=== PATIENT | female | born 1990 | race Caucasian/White ===

== ENCOUNTER 2018-09-22 18:05 | Emergency (ER) | payer OTHER, MEDICAID ==
[~2018-09-22] VITALS: Ht 167.6 cm; Wt 99.8 kg
[~2018-09-22 18:05] MED LIST: ALBUTEROL0.09 MG/A2 INH; AMOXICILLIN500 MG PO; FLEXERIL10 MG PO; HYDROCODONE BIT1 T11 PO; MIRALAX POWDER17 G1 PO; MOTRIN800 MG PO; MULTI-DAY1 TAB PO; PROAIR
== END 2018-09-22 20:26 | disposition home or self-care (01) ==
LOC: ED 18:05
DX: S29.012A Strain of muscle and tendon of back wall of thorax, initial encounter (principal); S09.90XA Unspecified injury of head, initial encounter; Z79.899 Other long term (current) drug therapy; V49.88XA Car occupant (driver) (passenger) injured in other specified transport accidents, initial encounter; Y93.89 Activity, other specified; Y92.413 State road as the place of occurrence of the external cause; Y99.9 Unspecified external cause status

== ENCOUNTER 2019-01-20 01:30 | Emergency (ER) | payer SELFPAY ==
[~2019-01-20] VITALS: Ht 167.6 cm; Wt 93.0 kg
[2019-01-20] MEDS ORDERED: Motrin,Rufen800 MG PO (02:31)
== END 2019-01-20 03:00 | disposition home or self-care (01) ==
LOC: ED 01:30
DX: S82.55XA Nondisplaced fracture of medial malleolus of left tibia, initial encounter for closed fracture (principal); M79.671 Pain in right foot; Z79.899 Other long term (current) drug therapy; Z88.7 Allergy status to serum and vaccine; W10.8XXA Fall (on) (from) other stairs and steps, initial encounter; Y93.89 Activity, other specified; Y92.89 Other specified places as the place of occurrence of the external cause; Y99.8 Other external cause status

== ENCOUNTER 2019-06-23 14:48 | Emergency (ER) | payer OTHER ==
[~2019-06-23] VITALS: Ht 167.6 cm; Wt 95.3 kg
[~2019-06-23 14:48] MED LIST changes: +Motrin,Rufen800 MG PO
[2019-06-23] MEDS ORDERED: TAMIFLU 75MG CA75 MG PO (17:37)
[2019-06-23] MEDS ORDERED: ZITHROMAX250 MG PO (17:37)
== END 2019-06-23 17:55 | disposition home or self-care (01) ==
LOC: ED 14:48
DX: J40 Bronchitis, not specified as acute or chronic (principal); K29.70 Gastritis, unspecified, without bleeding; H92.03 Otalgia, bilateral; Z79.899 Other long term (current) drug therapy; Z88.7 Allergy status to serum and vaccine

== ENCOUNTER 2020-07-09 10:40 | Emergency (ER) | payer OTHER ==
[~2020-07-09] VITALS: Wt 97.5 kg
[~2020-07-09 10:40] MED LIST changes: +TAMIFLU 75MG CA75 MG PO; +ZITHROMAX250 MG PO
[2020-07-09 11:17] LABS: BASO % 0.4 % (0.0-1.0); EOS # 0.1 10*3/uL (0.0-0.4); EOS % 0.6 % (1.0-4.0); HEMATOCRIT 44.2 % (37.0-47.0); LYMPH # 1.6 10*3/uL (1.3-4.4); LYMPH % 17.5 % (27.0-41.0); MEAN CELL VOLUME 87.5 fl (81.0-99.0); MEAN CORPUSCULAR HGB 28.1 pg (27.0-31.0); MEAN CORPUSCULAR HGB CONC 32.1 g/dl (33.0-37.0); MEAN PLATELET VOLUME 9.2 fl (9.6-12.3); MONO # 0.4 10*3/uL (0.1-1.0); NEUT % 77.2 % (47.0-73.0); PLATELET COUNT AUTOMATED 348 10*3/uL (130-400); RED BLOOD COUNT 5.05 10*6/uL (4.10-5.10); RED CELL DISTRI WIDTH 13.2 % (0-14.5); WHITE BLOOD COUNT 9.1 10*3/uL (4.8-10.8)
[2020-07-09 11:21] LABS: BILIRUBIN Negative (Negative); BLOOD Negative (Negative); CLARITY Clear (Clear); COLOR Yellow (Yellow); GLUCOSE Negative (Negative); KETONE Negative (Negative); LEUKO ESTERASE Negative (Negative); NITRITE Negative (Negative); PH 5.5 (4.5-8.0); UROBILINOGEN 0.2 E.U./dl (0.0-1.0)
[2020-07-09 11:36] LABS: RBC 0-2 rbc/hpf (0-2); WBC 0-2 wbc/hpf (0-5)
[2020-07-09 11:36] LABS: ALBUMIN 3.4 gm/dl (3.1-4.5); BUN 8 mg/dl (7-24); CHLORIDE 109 mmol/L (98-107); CREATININE 0.67 mg/dL (0.55-1.02); SGOT/AST 7 IU/L (3-35); SGPT/ALT 20 U/L (12-78); SODIUM 139 mmol/L (136-145); TOTAL PROTEIN 7.2 gm/dL (6.4-8.2)
[2020-07-09 11:37] LABS: BACTERIA TRACE; MUCOUS 1+
[2020-07-09 11:39] LABS: ALKALINE PHOSPHATASE 68 U/L (45-117); TROPONIN I < 0.015 ng/ml (<0.045)
[2020-07-09] MEDS ORDERED: ZOFRAN4 MG PO (12:51)
== END 2020-07-09 13:18 | disposition home or self-care (01) ==
LOC: ED 10:40
PROVIDERS: Nurse Practitioner Family
DX: J02.9 Acute pharyngitis, unspecified (principal); Z20.828 Contact with and (suspected) exposure to other viral communicable diseases; R11.2 Nausea with vomiting, unspecified; R51.9 Headache, unspecified; Z88.7 Allergy status to serum and vaccine; Z79.899 Other long term (current) drug therapy

== ENCOUNTER 2020-07-13 15:03 | Emergency (ER) | payer OTHER ==
[~2020-07-13] VITALS: Ht 167.6 cm; Wt 117.5 kg
[~2020-07-13 15:03] MED LIST changes: +ZOFRAN4 MG PO
[2020-07-13 15:57] LABS: BASO % 0.4 % (0.0-1.0); EOS # 0.1 10*3/uL (0.0-0.4); EOS % 1.3 % (1.0-4.0); HEMATOCRIT 40.4 % (37.0-47.0); LYMPH # 2.3 10*3/uL (1.3-4.4); LYMPH % 27.6 % (27.0-41.0); MEAN CELL VOLUME 87.6 fl (81.0-99.0); MEAN CORPUSCULAR HGB 28.4 pg (27.0-31.0); MEAN CORPUSCULAR HGB CONC 32.4 g/dl (33.0-37.0); MEAN PLATELET VOLUME 9.3 fl (9.6-12.3); MONO # 0.6 10*3/uL (0.1-1.0); MONO % 7.3 % (3.0-9.0); NEUT # 5.3 10*3/uL (2.3-7.9); PLATELET COUNT AUTOMATED 328 10*3/uL (130-400); RED BLOOD COUNT 4.61 10*6/uL (4.10-5.10); RED CELL DISTRI WIDTH 13.1 % (0-14.5); WHITE BLOOD COUNT 8.4 10*3/uL (4.8-10.8)
[2020-07-13 16:12] LABS: ALBUMIN 3.4 gm/dl (3.1-4.5); ALKALINE PHOSPHATASE 81 U/L (45-117); BUN 12 mg/dl (7-24); CHLORIDE 106 mmol/L (98-107); CREATININE 0.69 mg/dL (0.55-1.02); LIPASE 77 U/L (73-393); POTASSIUM 4.1 mmol/L (3.5-5.1); SGOT/AST 13 IU/L (3-35); SGPT/ALT 25 U/L (12-78); SODIUM 140 mmol/L (136-145); TOTAL PROTEIN 7.1 gm/dL (6.4-8.2)
== END 2020-07-13 17:12 | disposition home or self-care (01) ==
LOC: ED 15:03
PROVIDERS: Emergency Medicine
DX: R10.31 Right lower quadrant pain (principal); Z79.899 Other long term (current) drug therapy; Z88.7 Allergy status to serum and vaccine

== ENCOUNTER 2021-09-16 14:32 | Emergency (ER) | payer OTHER ==
[~2021-09-16] VITALS: Ht 167.6 cm; Wt 99.8 kg
[2021-09-16 16:11] LABS: BASO % 0.5 % (0.0-1.0); EOS # 0.1 10*3/uL (0.0-0.4); EOS % 1.8 % (1.0-4.0); LYMPH # 1.6 10*3/uL (1.3-4.4); LYMPH % 28.1 % (27.0-41.0); MEAN CELL VOLUME 85.8 fl (81.0-99.0); MEAN CORPUSCULAR HGB 28.2 pg (27.0-31.0); MEAN CORPUSCULAR HGB CONC 32.9 g/dl (33.0-37.0); MEAN PLATELET VOLUME 9.5 fl (9.6-12.3); MONO # 0.5 10*3/uL (0.1-1.0); MONO % 9.5 % (3.0-9.0); NEUT # 3.4 10*3/uL (2.3-7.9); NEUT % 59.9 % (47.0-73.0); PLATELET COUNT AUTOMATED 309 10*3/uL (130-400); RED BLOOD COUNT 4.78 10*6/uL (4.10-5.10); RED CELL DISTRI WIDTH 13.2 % (0-14.5); WHITE BLOOD COUNT 5.6 10*3/uL (4.8-10.8)
[2021-09-16 16:26] LABS: ALKALINE PHOSPHATASE 69 U/L (45-117); BUN 6 mg/dl (7-24); CHLORIDE 110 mmol/L (98-107); CREATININE 0.66 mg/dL (0.55-1.02); LIPASE 62 U/L (73-393); POTASSIUM 3.4 mmol/L (3.5-5.1); SGOT/AST 21 IU/L (3-35); SGPT/ALT 29 U/L (12-78); SODIUM 142 mmol/L (136-145); TOTAL PROTEIN 6.8 gm/dL (6.4-8.2)
[2021-09-16] MEDS ORDERED: IBUPROFEN600 MG PO (17:57)
[2021-09-16] MEDS ORDERED: ZOFRAN4 MG PO (17:57)
[2021-09-16] MEDS ORDERED: PENICILLIN-VK500 MG PO (17:57)
== END 2021-09-16 18:30 | disposition home or self-care (01) ==
LOC: ED 14:32
PROVIDERS: Physician Assistant
DX: K02.9 Dental caries, unspecified (principal); R11.2 Nausea with vomiting, unspecified; Z88.7 Allergy status to serum and vaccine; Z88.6 Allergy status to analgesic agent; Z79.899 Other long term (current) drug therapy

== ENCOUNTER 2023-09-16 09:20 | Emergency (ER) | payer OTHER ==
[~2023-09-16] VITALS: Ht 167.6 cm; Wt 113.4 kg
[~2023-09-16 09:20] MED LIST changes: +IBUPROFEN600 MG PO; +PENICILLIN-VK500 MG PO
[2023-09-16] MEDS ORDERED: Ketorolac Tromethamine 60 MG/2 ML VIAL IM ONE (10:25)
[2023-09-16] MEDS ORDERED: NAPROXEN250 MG PO (10:27)
== END 2023-09-16 10:35 | disposition home or self-care (01) ==
LOC: ED 09:20
DX: S80.11XA Contusion of right lower leg, initial encounter (principal); J45.909 Unspecified asthma, uncomplicated; Z88.7 Allergy status to serum and vaccine; Z88.5 Allergy status to narcotic agent; W20.8XXA Other cause of strike by thrown, projected or falling object, initial encounter; Y93.89 Activity, other specified; Y92.009 Unspecified place in unspecified non-institutional (private) residence as the place of occurrence of the external cause; Y99.0 Civilian activity done for income or pay

== ENCOUNTER 2023-11-29 09:41 | Emergency (ER) | payer OTHER ==
[~2023-11-29] VITALS: Ht 167.6 cm; Wt 108.9 kg
[~2023-11-29 09:41] MED LIST changes: +NAPROXEN250 MG PO
[2023-11-29] MEDS ORDERED: NEXIUM10 MG PO (09:50)
[2023-11-29] MEDS ORDERED: ZITHROMAX250 MG PO (09:58)
[2023-11-29] MEDS ORDERED: PREDNISONE50 MG PO (09:58)
[2023-11-29] MEDS ORDERED: AZITHROMYCIN 250 MG TAB PO ONE (10:00)
[2023-11-29] MEDS ORDERED: predniSONE 20 MG TAB PO ONE (10:00)
== END 2023-11-29 10:08 | disposition home or self-care (01) ==
LOC: ED 09:41
DX: J40 Bronchitis, not specified as acute or chronic (principal); J02.9 Acute pharyngitis, unspecified; Z91.030 Bee allergy status; Z88.7 Allergy status to serum and vaccine; Z88.6 Allergy status to analgesic agent; Z79.899 Other long term (current) drug therapy; Z90.711 Acquired absence of uterus with remaining cervical stump; Z90.89 Acquired absence of other organs

== ENCOUNTER 2024-04-08 10:52 | Emergency (ER) | payer OTHER ==
[~2024-04-08] VITALS: Wt 99.8 kg
[~2024-04-08 10:52] MED LIST changes: +NEXIUM10 MG PO; +PREDNISONE50 MG PO
[2024-04-08] MEDS ORDERED: CEPHALEXIN500 M1 PO (11:42)
[2024-04-08] MEDS ORDERED: SEPTDS PO (11:42)
[2024-04-08] MEDS ORDERED: Sulfamethoxazole/Trimethopri 1 TAB TAB PO ONE (11:45)
[2024-04-08] MEDS ORDERED: CEPHALEXIN 500 MG CAP PO ONE (11:45)
== END 2024-04-08 11:45 | disposition home or self-care (01) ==
LOC: ED 10:52
DX: L03.115 Cellulitis of right lower limb (principal); L03.031 Cellulitis of right toe; J45.909 Unspecified asthma, uncomplicated; Z91.030 Bee allergy status; Z88.7 Allergy status to serum and vaccine; Z88.5 Allergy status to narcotic agent; Z88.8 Allergy status to other drugs, medicaments and biological substances; Z90.89 Acquired absence of other organs; Z90.710 Acquired absence of both cervix and uterus; Z90.49 Acquired absence of other specified parts of digestive tract; Z98.890 Other specified postprocedural states

== ENCOUNTER 2024-06-15 17:39 | Emergency (ER) | payer OTHER ==
[~2024-06-15] VITALS: Ht 167.6 cm; Wt 99.8 kg
[~2024-06-15 17:39] MED LIST changes: +CEPHALEXIN500 M1 PO; +SEPTDS PO
[2024-06-15] MEDS ORDERED: Sulfamethoxazole/Trimethopri 1 TAB TAB PO ONE (18:30)
== END 2024-06-15 18:31 | disposition home or self-care (01) ==
LOC: ED 17:39
DX: L03.032 Cellulitis of left toe (principal); L03.031 Cellulitis of right toe; J45.909 Unspecified asthma, uncomplicated; Z91.030 Bee allergy status; Z88.7 Allergy status to serum and vaccine; Z88.6 Allergy status to analgesic agent; Z79.899 Other long term (current) drug therapy; Z90.710 Acquired absence of both cervix and uterus; Z90.89 Acquired absence of other organs; Z98.890 Other specified postprocedural states